=== PATIENT | male | born 1985 | race Caucasian/White ===

== ENCOUNTER 2016-09-06 20:33 | Emergency (ER) | payer MEDICAID ==
[2016-09-06 20:38] VITALS: BMI 34.8
--- NOTE | 2016-09-06 20:46 | ED PDOC ---
Arrival/HPI - General Time Seen by Provider: 09/06/16 20:39 Historian: Patient, EMS - History of Present Illness Narrative History of Present Illness (Text): 09/06/16 20:45 Héctor Hernandez is a 31 year old male who presents to the Emergency department brought in by EMS for substance abuse. EMS report patient was found unresponsive at home prior to arrival. Patient was given Narcan en route by EMS with immediate response. Patient is alert, awake, and oriented x3. Patient states he takes pain medication recreationally and reports tonight he took 2 Rokacet and passed out. Patient states this has happened to him previously after taking pain medication. Patient denies any fever, chills, chest pain, shortness of breath, nausea, vomiting, diarrhea, urinary symptoms, back pain, neck pain, headache, dizziness, or any other complaints. Symptom Onset: Sudden Symptom Course: Improving Activities at Onset: Rest, Light Context: Home Past Medical History - Provider Review Nursing Documentation Reviewed: Yes Family/Social History - Physician Review Nursing Documentation Reviewed: Yes Family/Social History: No Known Family HX Allergies/Home Meds Allergies/Adverse Reactions: Allergies No Known Allergies Allergy (Verified 09/06/16 20:38) Home Medications: Home Meds Medication Instructions Recorded Confirmed Enalapril Maleate [Vasotec] 2.5 mg PO DAILY 09/06/16 09/06/16 Levothyroxine [Synthroid] 25 mcg PO DAILY 09/06/16 09/06/16 MetFORMIN [glucOPHAGE] 1,000 mg PO BID 09/06/16 09/06/16 clonazePAM [clonAZEPAM] 1 mg PO DAILY 09/06/16 09/06/16 Review of Systems - Physician Review All systems were reviewed & negative as marked: Yes - Review of Systems Constitutional: Normal. absent: Fevers Eyes: Normal ENT: Normal Respiratory: Normal. absent: SOB, Cough Cardiovascular: Normal. absent: Chest Pain Gastrointestinal: Normal. absent: Abdominal Pain, Diarrhea, Nausea, Vomiting Genitourinary Male: Normal. absent: Dysuria, Frequency, Hematuria, Urinary Output Changes Musculoskeletal: Normal. absent: Back Pain, Neck Pain Skin: Normal. absent: Rash Neurological: Normal. absent: Headache, Dizziness Endocrine: Normal Hemo/Lymphatic: Normal Psychiatric: Other (+substance abuse) Physical Exam Vital Signs Reviewed: Yes Vital Signs Temp Pulse Resp BP Pulse Ox 09/06/16 22:22 97.4 F L 103 H 17 132/94 H 96 09/06/16 20:39 102 H 18 165/104 H 96 Temperature: Afebrile Blood Pressure: Hypertensive Pulse: Regular Respiratory Rate: Normal Appearance: Positive for: Well-Appearing, Non-Toxic, Comfortable Pain Distress: None Mental Status: Positive for: Alert and Oriented X 3 - Systems Exam Head: Present: Atraumatic, Normocephalic Pupils: Present: PERRL Extroacular Muscles: Present: EOMI Conjunctiva: Present: Normal Mouth: Present: Moist Mucous Membranes Neck: Present: Normal Range of Motion Respiratory/Chest: Present: Clear to Auscultation, Good Air Exchange. No: Respiratory Distress, Accessory Muscle Use Cardiovascular: Present: Regular Rate and Rhythm, Normal S1, S2. No: Murmurs Abdomen: Present: Normal Bowel Sounds. No: Tenderness, Distention, Peritoneal Signs Back: Present: Normal Inspection Upper Extremity: Present: Normal Inspection. No: Cyanosis, Edema Lower Extremity: Present: Normal Inspection. No: Edema Neurological: Present: GCS=15, CN II-XII Intact, Speech Normal Skin: Present: Warm, Dry, Normal Color. No: Rashes Psychiatric: Present: Alert, Oriented x 3, Normal Insight, Normal Concentration Medical Decision Making ED Course and Treatment: 09/06/16 20:45 Impression: 31 year old male brought in by EMS for substance abuse. Differential Diagnosis include but are not limited to: substance abuse Plan: -- EKG -- Labs, alcohol level -- Urinalysis, urine drug screen -- Reassess and disposition Progress Notes: Reviewed EKG, sinus tachycardia at [address]-segment elevations or depressions, no T-wave inversions, normal intervals. 09/06/16 23:33 On re-evaluation, the patient feels better and is in no acute distress. I have discussed the results and plan with the patient, who expresses understanding. Patient in agreement with plan to discharged home. Patient is stable for discharge. Patient was instructed to follow up with physician/clinic in 1-2 days or return if symptoms worsen or new concerning symptoms arise. Re-evaluation Time: 23:30 Reassessment Condition: Re-examined, Improved - Lab Interpretations Lab Results: 09/06/16 20:30 09/06/16 20:30 Lab Results 09/06/16 22:20: Urine Color Yellow, Urine Appearance Clear, Urine pH 6.0, Ur Specific [place] >= 1.030, Urine Protein >=300 H, Urine Glucose (UA) Negative, Urine Ketones Negative, Urine Blood Trace-lysed H, Urine Nitrate Negative, Urine Bilirubin Negative, Urine Urobilinogen 1.0 H, Ur Leukocyte Esterase Negative, Urine RBC 0 - 2, Urine WBC 1 - 3, Ur Epithelial Cells 0 - 2, Calcium Oxalate Crystal Few, Urine Bacteria Mod, Hyaline Casts 0 - 2, Urine Other Mucus 09/06/16 22:20: Urine Opiates Screen Negative, Urine Methadone Screen Negative, Ur Barbiturates Screen Negative, Ur Phencyclidine Scrn Negative, Ur Amphetamines Screen Negative, U Benzodiazepines Scrn Negative, U Oth Cocaine Metabols Negative, U Cannabinoids Screen Negative 09/06/16 20:30: Acetaminophen < 10.0 L 09/06/16 20:30: Alcohol, Quantitative < 10 09/06/16 20:30: Sodium 141, Potassium 3.5 L, Chloride 100, Carbon Dioxide 25, Anion Gap 20, BUN 15, Creatinine 1.0, Est GFR ( Amer) > 60, Est GFR (Non- Af Amer) > 60, Random Glucose 180 H, Calcium 9.9, Total Bilirubin 0.7, AST 93 H , ALT 341 H, Alkaline Phosphatase 66, Total Protein 8.6 H, Albumin 4.6, Globulin 4.0, Albumin/Globulin Ratio 1.2 09/06/16 20:30: WBC 12.4 H, RBC 4.95, Hgb 13.5 L, Hct 41.0 L, MCV 82.8, MCH 27.3 , MCHC 32.9, RDW 14.0, Plt Count 333, MPV 9.9, Gran % 49.1 L, Lymph % (Auto) 38.2 H, [place] % (Auto) 7.9 H, Eos % (Auto) 4.2, Baso % (Auto) 0.6, Gran # 6.08, Lymph # 4.7 H, [place] # 1.0 H, Eos # 0.5, Baso # 0.07 I have reviewed the lab results: Yes - EKG Interpretation Interpreted by ED Physician: Yes Type: 12 lead EKG - Scribe Statement The provider has reviewed the documentation as recorded by the Scribe Tawnya Sarbjit All medical record entries made by the Sohaibquiana were at my direction and personally dictated by me. I have reviewed the chart and agree that the record accurately reflects my personal performance of the history, physical exam, medical decision making, and the department course for this patient. I have also personally directed, reviewed, and agree with the discharge instructions and disposition. Disposition/Present on Arrival - Present on Arrival Any Indicators Present on Arrival: No - Disposition Have Diagnosis and Disposition been Completed?: Yes Diagnosis: Substance abuse Disposition: HOME/ ROUTINE Disposition Time: 23:30 Patient Problems: Current Active Problems Problem Status Onset Substance abuse Acute Condition: GOOD Discharge Instructions (ExitCare): Narcotic Abuse (ED) Referrals: Shai Mtz, [Primary Care Provider] - Follow up with primary
[2016-09-06 21:03] LABS: ADD MANUAL DIFF? NO
[2016-09-06 21:07] LABS: BASO # 0.07 K/mm3 (0.0-2.0); BASO % 0.6 % (0.0-3.0); EOS # 0.5 (0.0-0.7); EOS % 4.2 % (1.5-5.0); GRAN # 6.08 (1.4-6.5); GRAN % 49.1 % (50.0-68.0); LYMPH # 4.7 (1.2-3.4); LYMPH % 38.2 % (22.0-35.0); MEAN CELL VOLUME 82.8 fL (80.0-105.0); MEAN CORPUSCULAR HEMOGLOBIN 27.3 pg (25.0-35.0); MEAN CORPUSCULAR HGB CONC 32.9 g/dl (31.0-37.0); MEAN PLATELET VOLUME 9.9 fl (7.0-11.0); MONO % 7.9 % (1.0-6.0); PLATELET COUNT 333 10^3/uL (120.0-450.0); WHITE BLOOD COUNT 12.4 10^3/ul (4.5-11.0)
[2016-09-06 21:41] LABS: ALB/GLOB RATIO 1.2 (1.1-1.8); ALKALINE PHOSPHATASE 66 U/L (38-133); ALT/SGPT 341 U/L (7-56); AST/SGOT 93 U/L (15-59); BILIRUBIN,TOTAL 0.7 mg/dL (0.2-1.3); BLOOD UREA NITROGEN 15 mg/dL (7-21); CALCIUM 9.9 mg/dL (8.4-10.5); CARBON DIOXIDE 25 mmol/L (21-33); CHLORIDE 100 mmol/L (95-110); GFR AFRICAN-AMERICAN > 60; GLUCOSE,RANDOM 180 mg/dL (70-110); POTASSIUM 3.5 mmol/L (3.6-5.0); SODIUM 141 mmol/L (132-148); TOTAL PROTEIN 8.6 g/dL (5.8-8.3)
[2016-09-06 22:23] VITALS: TEMP 97.4
[2016-09-06 22:35] LABS: URINE BILIRUBIN NEGATIVE (NEGATIVE); URINE BLOOD TRACE-LYSED (NEGATIVE); URINE GLUCOSE (UA) NEGATIVE (NEGATIVE); URINE KETONE NEGATIVE (NEGATIVE); URINE LEUKOCYTE ESTERASE NEGATIVE Leu/uL (NEGATIVE); URINE PROTEIN >=300 mg/dL (<30 mg/dL)
[2016-09-06 22:40] LABS: URINE APPEARANCE CLEAR (CLEAR); URINE COLOR YELLOW (YELLOW)
[2016-09-06 22:59] LABS: URINE CALCIUM OXALATE CRYSTALS FEW /hpf; URINE EPITHELIAL CELLS 0 - 2 /hpf (0-5); URINE RBC 0 - 2 /hpf (0-2)
[2016-09-06 23:00] LABS: URINE BACTERIA MOD (NEG)
[2016-09-06 23:49] VITALS: BP 130/99; PULSE 94; RESP 19; O2SAT 99
--- NOTE | 2016-09-07 10:33 | CARD ---
APPROVED REPORT EKG Measurement Heart [id number] <Conclusion> Sinus tachycardia PRWP V 1 - 4 NSSTW changes Prolonged QTc
== END 2016-09-06 23:52 | disposition home or self-care (01) ==
LOC: ED 20:33
DX: F19.10 Other psychoactive substance abuse, uncomplicated (principal)